=== PATIENT | female | born 1980 | race Two or more races ===

== ENCOUNTER → 2025-05-26 15:05 | Outpatient (CLI) | payer OTHER | END | disposition home or self-care (01) | LOC: PRENATAL 15:05 | PROVIDERS: ATTEND Obstetrics & Gynecology Maternal & Fetal Medicine | DX: O44.00 Complete placenta previa NOS or without hemorrhage, unspecified trimester (principal); O09.529 Supervision of elderly multigravida, unspecified trimester; O10.019 Pre-existing essential hypertension complicating pregnancy, unspecified trimester; O99.210 Obesity complicating pregnancy, unspecified trimester; Z36.0 Encounter for antenatal screening for chromosomal anomalies; Z3A.21 21 weeks gestation of pregnancy ==

== ENCOUNTER 2025-07-20 11:49 | Outpatient (CLI) | payer OTHER | END 2025-07-20 11:51 | disposition home or self-care (01) | LOC: PRENATAL 11:49 | PROVIDERS: ATTEND Obstetrics & Gynecology Maternal & Fetal Medicine | DX: O26.843 Uterine size-date discrepancy, third trimester (principal); O36.8130 Decreased fetal movements, third trimester, not applicable or unspecified; O09.523 Supervision of elderly multigravida, third trimester; O10.013 Pre-existing essential hypertension complicating pregnancy, third trimester; O99.213 Obesity complicating pregnancy, third trimester; Z36.0 Encounter for antenatal screening for chromosomal anomalies; O36.63X0 Maternal care for excessive fetal growth, third trimester, not applicable or unspecified; Z3A.29 29 weeks gestation of pregnancy ==